=== PATIENT | female | born 1940 | race Two or more races ===

== ENCOUNTER 2017-10-07 11:07 | Observation (INO) | payer MEDICARE, BC ==
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
[2017-10-07 11:54] LABS: Basophils # (A) 0.1 k/uL (0-0.2); Basophils % (A) 1 %; CH 27.6; CHCM 32.1; Eosinophils # (A) 0.1 k/uL (0-0.7); Eosinophils % (A) 1 %; HCT 40.5 % (34.0-46.0); HDW 2.63; Luc # (Auto) 0.03; Luc % (Auto) 0; Lymphocytes # (A) 1.1 k/uL (1.0-4.8); Lymphocytes % (A) 12 %; MCH 27.8 pg (25.0-35.0); MCHC 32.2 g/dL (31.0-37.0); MCV 86.5 fL (80.0-100.0); Mean Platelet Volume 8.8; Monocytes # (A) 0.1 k/uL (0-1.0); Monocytes % (A) 1 %; Neutrophils % (A) 85 %; RBC 4.68 m/uL (3.80-5.40); RDW 13.9 % (11.5-15.5); WBC 9.4 k/uL (3.8-10.6); WBC (Perox) 9.96
[2017-10-07 12:03] LABS: Partial Thromboplastin Time 25.8 sec (22.0-30.0); Prothrombin Time 10.4 sec (9.0-12.0)
[2017-10-07 12:04] LABS: ALT 29 U/L (9-52); AST 23 U/L (14-36); Acetaminophen <10.0 ug/mL; Alcohol <10 mg/dL; Alkaline Phosphatase 90 U/L (38-126); Anion Gap 9 mmol/L; Blood Urea Nitrogen 18 mg/dL (7-17); Calcium 9.6 mg/dL (8.4-10.2); Carbon Dioxide 22 mmol/L (22-30); Chloride 109 mmol/L (98-107); Glucose 146 mg/dL (74-99); Non-African American GFR(MDRD) 51 (>60 ml/min/1.73 sqM); Potassium 4.4 mmol/L (3.5-5.1); Salicylate <1.0 mg/dL; Sodium 140 mmol/L (137-145); Total Bilirubin 0.3 mg/dL (0.2-1.3); Total Protein 7.2 g/dL (6.3-8.2)
--- NOTE | 2017-10-07 12:10 | CT ---
EXAMINATION TYPE: CT brain wo con DATE OF EXAM: 10/07/2017 COMPARISON: NONE HISTORY: altered mental status CT DLP: 1144 mGycm Automated exposure control for dose reduction was used. FINDINGS: Cerebral vascular calcifications are present. Cortical atrophy is likely age-related. Periventricular white matter shows patchy low attenuation. No hemorrhage or hydrocephalus evident. Calvarium is inta ct. Paranasal sinuses and mastoid air cells as visualized are normal. IMPRESSION: AGE-RELATED CHANGES OF ATROPHY AND PROBABLE CHRONIC SMALL VESSEL ISCHEMIA. FOLLOW-UP INDICATED.
--- NOTE | 2017-10-07 12:16 | XR ---
EXAMINATION TYPE: XR chest 2V DATE OF EXAM: 10/07/2017 COMPARISON: NONE HISTORY: Altered mental status TECHNIQUE: Frontal and lateral views of the chest are obtained. FINDINGS: Retrocardiac density with central lucency compatible with intrathoracic stomach. Prominent lung volumes suggest underlying COPD. Interstitium is increased. Wedge compression fractures present at the upper thoracic spine. Heart may be enlarged. Patient is rotated. No pneumothorax or pleural e ffusion, no evident airspace disease. IMPRESSION: No acute cardiopulmonary process. Cardiomegaly. Hiatal hernia. Thoracic compression frac tures.
[2017-10-07 12:21] LABS: Creatine Kinase 30 U/L (30-135)
[2017-10-07 12:33] LABS: Creatine Kinase MB 0.6 ng/mL (0.0-2.4); Troponin I <0.012 ng/mL (0.000-0.034)
[2017-10-07 14:51] LABS: Appearance,Urine Cloudy (Clear); Bacteria,Urine Rare /hpf; Bilirubin,Urine Negative (Negative); Glucose,Urine (UA) Negative (Negative); Ketones,Urine Negative (Negative); Leukocyte Esterase,Urine Large (Negative); Mucus,Urine Rare /hpf; Nitrite,Urine Negative (Negative); PH, Urine 6.5 (5.0-8.0); Particle Count 4090; Protein,Urine Trace (Negative); RBC,Urine 2 /hpf (0-5); Specific Gravity,Urine 1.017 (1.001-1.035); Squamous Epithelial Cell,Urine 11 /hpf (0-4); UA Billing (MACRO vs. MICRO) MICRO; Urobilinogen,Urine <2.0 mg/dL (<2.0); WBC,Urine 10 /hpf (0-5)
[2017-10-07] MEDS ORDERED: NALOXONE 0.4 MG/ML 1 ML VIAL IV PRN (15:19)
[2017-10-07 16:33] LABS: VBG PH 7.37 (7.31-7.41)
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
[2017-10-07] MEDS: DONEPEZIL 10 MG TAB PO SCH (21:35)
[2017-10-07] MEDS: HEPARIN SODIUM,PORCINE 5,000 UNIT/ML 1 ML VIAL SQ SCH (21:35)
[2017-10-07] MEDS: ATORVASTATIN 20 MG TAB PO SCH (21:35)
[2017-10-08] MEDS: HEPARIN SODIUM,PORCINE 5,000 UNIT/ML 1 ML VIAL SQ SCH ×4 (04:05→23:55)
[2017-10-08 06:19] LABS: Basophils # (A) 0.1 k/uL (0-0.2); Basophils % (A) 1 %; CHCM 31.8; Eosinophils # (A) 0.4 k/uL (0-0.7); Eosinophils % (A) 4 %; HCT 37.9 % (34.0-46.0); HDW 2.58; HGB 12.3 gm/dL (11.4-16.0); Luc # (Auto) 0.13; Luc % (Auto) 1; Lymphocytes # (A) 2.9 k/uL (1.0-4.8); Lymphocytes % (A) 30 %; MCH 28.7 pg (25.0-35.0); MCHC 32.4 g/dL (31.0-37.0); MCV 88.7 fL (80.0-100.0); Mean Platelet Volume 9.2; Monocytes # (A) 0.6 k/uL (0-1.0); Monocytes % (A) 6 %; Neutrophils # (A) 5.5 k/uL (1.3-7.7); Neutrophils % (A) 58 %; RBC 4.27 m/uL (3.80-5.40); RDW 14.2 % (11.5-15.5); WBC 9.6 k/uL (3.8-10.6)
[2017-10-08 06:27] LABS: ALT 33 U/L (9-52); AST 19 U/L (14-36); Alkaline Phosphatase 70 U/L (38-126); Anion Gap 8 mmol/L; Blood Urea Nitrogen 21 mg/dL (7-17); Calcium 9.4 mg/dL (8.4-10.2); Carbon Dioxide 24 mmol/L (22-30); Chloride 108 mmol/L (98-107); Glucose 89 mg/dL (74-99); Magnesium 2.2 mg/dL (1.6-2.3); Non-African American GFR(MDRD) 54 (>60 ml/min/1.73 sqM); Phosphorus 3.3 mg/dL (2.5-4.5); Potassium 4.2 mmol/L (3.5-5.1); Sodium 140 mmol/L (137-145); Total Bilirubin 0.4 mg/dL (0.2-1.3); Total Protein 6.3 g/dL (6.3-8.2)
[2017-10-08] MEDS: ESCITALOPRAM 10 MG TAB PO SCH (08:09)
[2017-10-08] MEDS ORDERED: ACETAMINOPHEN TAB 325 MG TAB PO PRN (12:02)
--- NOTE | 2017-10-08 16:01 | P.PN ---
Subjective Progress Note Date: 10/08/17 Principal diagnosis: patient is seen and examined in follow up for confusion and possible toxic ingestion (accidental ) of dog medicine 76 year old female with dementia and depression. It seems like she has been becoming more and more forgetful recently , causing her some clashes with family memebers. Patient was brought in yesterday for evaluation regarding altered mental status and possible accidental toxic ingestion of dog medicine patient seen adn examined today, doing well, no new complaints, denies any chest pain trouble breathing, headache. tolerating diet , however, she is having some dilusional thoughts and again accusing family members of doing her harm,. Objective - Vital Signs Vital signs: Vital Signs Temp 97.7 F 10/08/17 11:46 Pulse 62 10/08/17 12:00 Resp 18 10/08/17 12:00 BP 140/72 10/08/17 11:46 Pulse Ox 97 10/08/17 11:46 Intake & Output 10/07/17 10/08/17 10/08/17 18:59 06:59 18:59 Intake Total 168 900 Balance 168 900 Weight 54.885 kg 54.885 kg Intake: Oral 168 600 Other 300 Other: Voiding Method Toilet Toilet Toilet # Voids 1 - Labs CBC & Chem 7: 10/08/17 06:06 10/08/17 06:06 Labs: Abnormal Lab Results - Last 24 Hours (Table) 10/07/17 10/07/17 10/08/17 Range/Units 14:40 16:19 06:06 VBG HCO3 23 L (24-28) mmol/L Chloride 108 H (98-107) mmol/L BUN 21 H (7-17) mg/dL Urine Appearance Cloudy H (Clear) Urine Protein Trace H (Negative) Ur Leukocyte Esterase Large H (Negative) Urine WBC 10 H (0-5) /hpf Ur Squamous Epith Cells 11 H (0-4) /hpf Urine Bacteria Rare H (None) /hpf Hyaline Casts 4 H (0-2) /lpf Urine Mucus Rare H (None) /hpf Assessment and Plan Assessment: 76-year-old female with history of depression and progressive forgetfulness with possible dementia underlying cause. Patient presented by her daughter due to worsening confusion and possible altered mental status. (1) Altered mental status Narrative/Plan: this is resolved now, with some residual confusion regarding facts and time, this is at her baseline pertmihir daughter, most likely related to the patient dementia Suspected due to be due to toxic metabolic encephalopathy with possible ingestion of dog medicine this is however questionable patient daughter, reported that she does not think her mom took any medications by mistake in fact she was concerned regarding a stroke. CT Scan of the head showed no acute process but suggested chronic vascular insults Current Visit: Yes Status: Acute Code(s): R41.82 - ALTERED MENTAL STATUS, UNSPECIFIED SNOMED Code(s): 664272090 (2) Dementia Narrative/Plan: Possibly from underlying vascular insults Computed tomography scan of the head showed chronic vascular changes Neurology input noted Neuro checks await EEG results to r/o seizures Current Visit: Yes Status: Acute Code(s): F03.90 - UNSPECIFIED DEMENTIA WITHOUT BEHAVIORAL DISTURBANCE SNOMED Code(s): 10168922 (3) Depression Narrative/Plan: Continue with home medications consider outpatient follow-up Patient denies any suicidal ideation await psych evaluation due to delusional ideations Current Visit: Yes Status: Acute Code(s): F32.9 - MAJOR DEPRESSIVE DISORDER , SINGLE EPISODE, UNSPECIFIED SNOMED Code(s): 59040952 (4) DVT prophylaxis Narrative/Plan: Heparin subcu Current Visit: Yes Status: Acute Code(s): AGG4898 - SNOMED Code(s): 033339251 Plan: CODE STATUS: Full DVT prophylaxis: Heparin Discussed with: Patient, RN, family Anticipated discharge: [address]: home PT evaluated the patient and found her to be completely independent with ambulation I spoke with the daughter today , and she told me how concerned she was about her mom having a stroke when she found her confused, I explained possiblity of vascular vs Alzheimer dementia , still doing some work up , ruling out seizures , and await psych evaluation . possible discharge in the morning, the daughter wants to take her mom home when all work up done. I recommended that the patient does not drive a car alone if they would allow any driving
[2017-10-08] MEDS: SODIUM CHLORIDE 0.9% 1,000 ML IV SCH (17:51)
[2017-10-08] MEDS: DONEPEZIL 10 MG TAB PO SCH (19:33)
[2017-10-08] MEDS: ATORVASTATIN 20 MG TAB PO SCH (19:33)
--- NOTE | 2017-10-08 20:54 | EEG ---
ELECTROENCEPHALOGRAM REPORT DATE OF EE10/08/2017. REFERRING PHYSICIAN: Dr. Deng. CONSULTING/INTERPRETING PHYSICIAN: Dr. Reema Cullen MD ELECTROENCEPHALOGRAPHIC EXAMINATION REPORT: INDICATION FOR EXAMINATION: This patient is a 76-year-old female being evaluated for altered mental status and dizziness. AGE: [age]. FINDINGS: A routine 21 channel awake digital EEG recording was accomplished utilizing the 10-20 international system with bipolar and referential montages. The background activity in the most alert resting state consists of a low to medium amplitude, poorly developed and poorly sustained 6 Hertz activity over the posterior head regions. This posterior rhythm attenuates minimally to eye opening. There is a small amount of low amplitude 18-20 Hz beta activity seen maximally over the anterior head regions. Muscle and movement artifact was observed on a few occasions during the tracing. Hyperventilation was not performed. Photic stimulation at flash frequencies of 2-30 Hz produced a minimal occipital driving response. Towards the mid and lateral portion of the tracing the patient does drift into spontaneous drowsiness. No epileptiform discharges were seen. IMPRESSION: This EEG is moderately abnormal in a diffuse fashion due to slowing of the EEG background. The EEG failed to reveal any focal, lateralized, or epileptiform abnormalities. Clinical correlation is recommended. MMODL / IJN: [id number] /
[2017-10-09 07:45] VITALS: BP 115/51; PULSE 62; RESP 16; TEMP 97.3
[2017-10-09] MEDS: SODIUM CHLORIDE 0.9% 1,000 ML IV SCH (09:31)
[2017-10-09] MEDS: ESCITALOPRAM 10 MG TAB PO SCH (09:31)
[2017-10-09] MEDS: HEPARIN SODIUM,PORCINE 5,000 UNIT/ML 1 ML VIAL SQ SCH (09:31)
--- NOTE | 2017-10-09 09:32 | US ---
EXAMINATION TYPE: US carotid duplex BILAT DATE OF EXAM: 10/09/2017 COMPARISON: CT 10/07/2017 CLINICAL HISTORY: altered mental status. EXAM MEASUREMENTS: RIGHT: Peak Systolic Velocity (PSV) cm/sec ----- Right CCA: 120.6 ----- Right ICA: 189.3 ----- Right ECA: 133.5 ICA/CCA ratio: 1.6 RIGHT: End Diastole cm/sec ----- Right CCA: 9.1 ----- Right ICA: 44.3 ----- Right ECA: 8.1 LEFT: Peak Systolic Velocity (PSV) cm/sec ----- Left CCA: 101.6 ----- Left ICA: 178.1 ----- Left ECA: 186.5 ICA/CCA ratio: 1.8 LEFT: End Diastole cm/sec ----- Left CCA: 19.2 ----- Left ICA: 30.4 ----- Left ECA: 10.9 VERTEBRALS (direction of flow): Right Vertebral: Antegrade Left Vertebral: Antegrade Rhythm: Normal Moderate amount of plaque visualized bilateral bulbs/ICAs. Elevated velocities visualized in the righ t ICA, right bulb, right ECA, left ICA, left bulb, and left ECA. IMPRESSION: Elevated velocity within the proximal internal carotid artery on the left and right with out elevation of ICA to CCA ratio. Atheromatous plaque in the bilateral carotid bulbs, difficult to e xclude hemodynamic significant stenosis 50-69% diameter reduction of the proximal internal carotid ar teries by Doppler criteria, an indirect measurement of carotid stenosis, carotid CTA may be of benefi t. Criteria for Assigning % of Stenosis / Diameter reduction (Estimation based on the indirect measurements of the internal carotid artery velocities (ICA PSV). 1. Normal (no stenosis)=ICA PSV < 125 cm/s: ratio < 2.0: ICA EDV<40 cm/s. 2. Less than 50% stenosis=ICA PSV < 125 cm/s: ratio < 2.0: ICA EDV<40 cm/s. 3. 50 to 69% stenosis=ICA PSV of 125 to 230 cm/s: ration 2.0 ? 4.0: ICA EDV 40-100 cm/s. 4. Greater than 70% stenosis to near occlusion= ICA PSV > 230 cm/s: ratio > 4.0: ICA EDV > 100 cm/s. 5. Near occlusion= ICA PSV velocities may be low or undetectable: variable ratio and ICA EDV. 6. Total occlusion=unable to detect flow.
--- NOTE | 2017-10-09 12:49 | P.DS ---
Providers Date of admission: 10/07/17 15:22 Expected date of discharge: 10/09/17 Attending physician: Jeffrey Deng MD Consults: 10/07/17 15:20 Consult Physician Urgent Consulting Provider: Miladys Cullen Consult Reason/Comments: ams Do you want consulting provider notified?: Yes 10/08/17 12:13 Consult Physician Routine Consulting Provider: Rajni Yuen Consult Reason/Comments: depression, dementia Do you want consulting provider notified?: Yes Primary care physician: Cristobal Jacob - Discharge Diagnosis(es) (1) Altered mental status Current Visit: Yes Status: Resolved (2) Dementia Current Visit: Yes Status: Chronic (3) Depression Current Visit: Yes Status: Chronic (4) DVT prophylaxis Current Visit: Yes Status: Acute Hospital Course: 76-year-old female with history of depression and progressive forgetfulness with possible dementia underlying cause. Patient presented by her daughter due to worsening confusion and altered mental status. patient was admitted to observation, CAT scan of the head was performed showed age-related chronic vascular changes, EEG was performed showed no focal epileptic activity, carotid ultrasound performed showed 69% occlusion on the right side, psychiatry evaluated the patient and recommended outpatient mental health evaluation I had a discussion with the patient and her daughter they both agreed on going back home and declined looking at other resources like retirement or assisted living facilities. Patient and family was counseled regarding dementia and that patient should avoid driving. Patient was started on statin and continued her current medications. Patient will be discharged today home with family care Otherwise her labs were unremarkable and patient was stable and her hospitalization course was pretty much uneventful Patient seen and examined today, no events overnight, looks pleasant denies any chest pain or trouble breathing denies any headache changes in her vision or hearing denies any focal neurologic deficits. She is eager to go home Constitutional: vital signs stable, Not in acute distress, pleasant, conversant Lungs: Clear to auscultation bilaterally, normal respiratory effort Cardiovascular: Regular rate and rhythm, no murmurs, no gallops, no rubs, no peripheral edema Gastrointestinal: Soft, no tenderness to palpation, no palpable hepatosplenomegally, bowel sounds positive, no abdominal wall hernias Extremities: peripheral pulses palpable and equal over bilateral radial arteries and dorsalis pedis artery, no calf muscle tenderness Psych: Alert, oriented to place, person Outpatient follow-up with PCP neurology and mental health evaluation Patient discharged in stable clinical condition 30 minutes were spent discharging this patient, and more than 50% of the time was spent in counseling the patient and family and in coordinating care. Pertinent Studies: Computed tomography scan of the head age-related vascular changes Carotid ultrasound bilateral stenosis 50-69% EEG no focal epileptic activity Patient Condition at Discharge: Stable Plan - Discharge Summary Discharge Rx Participant: No New Discharge Prescriptions: New Atorvastatin [Lipitor] 20 mg PO HS #30 tab Continue Escitalopram [Lexapro] 10 mg PO DAILY Donepezil [Aricept] 10 mg PO HS Discharge Medication List Donepezil [Aricept] 10 mg PO HS 10/07/17 [History] Escitalopram [Lexapro] 10 mg PO DAILY 10/07/17 [History] Atorvastatin [Lipitor] 20 mg PO HS #30 tab 10/09/17 [Rx] Follow up Appointment(s)/Referral(s): Cristobal Jacob DO [Primary Care Provider] - 1-2 days Miladys Cullen MD [STAFF PHYSICIAN] - 1 Week Patient Instructions/Handouts: Dementia (GEN) Activity/Diet/Wound Care/Special Instructions: activity as tolerated refrain from driving diet as tolerated Care Plan Goals (MU): outpatient mental health evaluation is recommended , you should be able to get a referral from your PCP Discharge Disposition: HOME SELF-CARE
== END 2017-10-09 12:50 | disposition home or self-care (01) ==
LOC: EC 11:07 → 3OBS 15:22 → 4MS4W 10-08 22:06
PROVIDERS: ADMIT Internal Medicine; ATTEND Internal Medicine
DX: R41.82 Altered mental status, unspecified (principal); F03.90 Unspecified dementia, unspecified severity, without behavioral disturbance, psychotic disturbance, mood disturbance, and anxiety; F32.9 Major depressive disorder, single episode, unspecified; I83.90 Asymptomatic varicose veins of unspecified lower extremity; I65.21 Occlusion and stenosis of right carotid artery; Z79.899 Other long term (current) drug therapy; M81.0 Age-related osteoporosis without current pathological fracture; Z88.5 Allergy status to narcotic agent; Z87.891 Personal history of nicotine dependence; M19.90 Unspecified osteoarthritis, unspecified site
CPT/HCPCS: 99285 ×2; 96372 ×3; 36415; 95819; 93005; 97161; 97165; 80053 ×2; 82550; 82553; 82803; 83605; 83735; 84100; 84484; 85025 ×2; 85610; 85730; 81001; 80306; 83520 ×2; 80320; 71020; 93880; 70450; G0378 ×4; J1644 ×3